=== PATIENT | male | born 1975 | race Caucasian/White ===

== ENCOUNTER → 2017-06-15 | Outpatient (CLI) | payer OTHER ==
--- NOTE | 2017-06-15 11:04 | REP ---
BILIARY SCAN WITH GALLBLADDER EJECTION FRACTION: 06/15/2017. CLINICAL HISTORY: Upper abdominal pain, weight gain, nausea, diarrhea, postprandial symptoms including reflux, heartburn, bloating and gas. Some constipation. TECHNIQUE: The patient received 6.6 mCi technetium 99m mebrofenin via an IV with sequential 5-minute images anteriorly over the right upper quadrant for 1 hour. Technologist notes indicate the patient had to walk for 30 minutes before activity was seen in bowel and the ejection fraction could then be performed. The patient had 8 ounces of Ensure Enlive beginning 95 minutes post tracer administration. A subsequent 60 minutes of dynamic scanning at 2 minute intervals. Region of interest drawn around the gallbladder fossa for this ejection fraction. FINDINGS: Tracer distribution of the liver was homogeneous throughout. Activity is first seen in the gallbladder fossa at 10 minutes. It is not seen in the duodenum by 60 minutes, but there has been excellent washout of activity from the liver and progressive filling of activity in the gallbladder fossa. Common duct activity was seen. No focal defects are noted in hepatic parenchyma. After the patient walked for 30 minutes and the Ensure was ingested, activity was seen in the duodenum and jejunum. There is progression of activity in the small bowel over the course of 1 hour observation. Activity overlying the gallbladder fossa is also visibly diminished over time with the region of interest drawn over the gallbladder and ejection fraction calculated by semi-automated method. That value was 71% ejection fraction for 60 minutes. With this technique, normal ejection fraction is greater than 35%. IMPRESSION: 1. Prompt homogeneous tracer distribution throughout the liver with good washout of activity from the liver, progressive and prompt filling of gallbladder with radiotracer. Activity into the duodenum and jejunum was observed after 30 minutes of walking and there was good progression and peristalsis of activity over the observation for ejection fraction. 2. Ejection fraction for 1 hour is 71%. The normal range greater than 35% using this technique. Signed by Jero Benton MD 06/15/2017 11:42 A
== END ==
LOC: M RAD 07:32
PROVIDERS: ATTEND Surgery
DX: R10.10 Upper abdominal pain, unspecified (principal)
CPT/HCPCS: 78227; A9537; J2805

== ENCOUNTER → 2020-11-13 | Outpatient (CLI) | payer OTHER ==
[~2020-11-13] MED LIST: ESOM0.1C PO; FERR325T3 PO; FIBE625T PO; ZOLM5TAB20 PO
== END ==
LOC: M LABSMTC 10:04
PROVIDERS: ATTEND Anesthesiology
DX: Z01.812 Encounter for preprocedural laboratory examination (principal); Z20.822 Contact with and (suspected) exposure to COVID-19

== ENCOUNTER 2020-11-18 07:31 | Day surgery (SDC) | payer OTHER ==
[~2020-11-18] VITALS: Ht 177.8 cm; Wt 69.9 kg
[~2020-11-18 07:31] MED LIST changes: +NS 1,000 ML IV ONE
[2020-11-18] MEDS ORDERED: LIDOCAINE 2% 100MG/5ML SDV (FOR ANES.) As Ordered ONE (07:45)
[2020-11-18] MEDS ORDERED: propofoL 200 MG/20 ML VIAL As Ordered ONE (07:45)
[2020-11-18] MEDS ORDERED: fentaNYL 100 MCG/2 ML INJECTION (J3010) As Ordered ONE (07:45)
--- OUTSIDE RECORDS SUMMARY | 2020-11-18 08:37 | CCD ---
Author Author [facility] Organization [facility] Address Unknown Phone Unavailable Care Team Providers Care Breeding Technician Name Role Phone Hilario Gomez Unavailable PROBLEMS Type Condition ICD9-CM Code [id number] Code Onset Dates Condition S tatus SNOMED Code Notes Problem Hematuria R31.9 Active 81339990 ALLERGIES No Known Allergies ENCOUNTERS from 1975 to 2020-10-13 Encounter Location Date Provider Diagnosis [facility] [address] [place] [address] Oct Hilario Gomez Hematuria R31.9 IMMUNIZATIONS No Information SOCIAL HISTORY Tobacco Use: Social History Observation Description Date Details (start date - stop date) Never Smoker Sex Assigned At : Social History Observation Description Sex Assigned At Unknown Sexual Hx: Question Answer Notes Had sex in the last 12 months (vaginal, oral, or anal)? Yes Have you ever had an STD? No Prevention Strategies discussed: Other with Women only Use protection? No Alcohol Screening: Question Answer Notes Did you have a drink containing alcohol in the past year? Ye s Points 5 Interpretation Positive How often did you have six or more drinks on one occas ion in the past year? Monthly (2 points) How many drinks did you have on a typica l day when you were drinking in the past year? 3 or 4 (1 point) How often did you have a drink containing alcohol in t he past year? Two to four times a month (2 points) Tobacco Use: Question Answer Notes Are you a: never smoker REASON FOR REFERRAL No Information VITAL SIGNS No information MEDICATIONS Medication SIG (Take, Route, Frequency, Duration) Notes Start Da te End Date Status Iron 325 (65 Fe) MG 1 tablet Orally Once a day for 30 day(s) Active Capsaicin 0.025 % 1 application as needed Externally Three times a da y Active Gabapentin 100 MG 1 capsule Orally Once a day for 30 day(s) Not-Taking Hydrocortisone 2.5 % 1 application Externally Once a day Active Cetaphil Moisturizing Act robbin Ciprofloxacin HCl 500 MG 1 tablet 1 hour prior to you r cystoscopy Orally Once for 1 days Sep, Active Esomeprazole Magnesium 20 MG 1 capsule Orally Once a day for 30 day(s ) Active Zolmitriptan 5 MG 1 tablet as needed one time Orally Once a day for 1 day(s) Active Calcium Polycarbophil 625 MG 2 tablets as needed Orally Four times a day Active Lansoprazole 30 MG 1 capsule Orally Once a day for 30 day(s) Not-Taking PROCEDURES No Information RESULTS No Results REASON FOR VISIT cipro script MEDICAL (GENERAL) HISTORY Type Description Date Medical History anemia Medical History chronic constipation Medical History FH Medical History GERD Medical History Migraines Medical History obstructive sleep apnea Medical History intervertebral disc disorder, lumdosacra l Medical History microscopic hematuria Medical History knee and shoulder pain Surgical History lower back surgery 2008 Surgical History dosial colum stimular 2018 Surgical History left hip surgery 2018 Goals Section No Information Health Concerns No Information MEDICAL EQUIPMENT No Information MENTAL STATUS No Information FUNCTIONAL STATUS No Information ASSESSMENTS Encounter Date Diagnosis Assessment Notes Treatment Notes Treatm ent Clinical Notes Oct, Hematuria (ICD-10 - R31.9) PLAN OF TREATMENT Medication Medication Name Sig Start Date Stop Date Ciprofloxacin HCl 500 MG 1 tablet 1 hour prior to you r cystoscopy Orally Once for 1 days Sep, Next Appt Details Provider Name:Bertrand Rizo, 2020-10-14 02:00:00 PM, [address], [place], [address], Insurance Providers Payer Name Payer Address Payer Phone Insured Name Patient Relati onship to Insured Coverage Start Date Coverage End Date 'S ADMINSTRATION ([place]) NON VA CARE [address] [address] [facility] [id number] [address] [facility] [employer] [id number] [place] [address] [address] LUGO
--- OUTSIDE RECORDS SUMMARY | 2020-11-18 08:37 | CCD ---
Author Author [facility] Organization [facility] Address Unknown Phone Unavailable Care Team Providers Care Mingler Operator Name Role Phone RizoBertrand Unavailable PROBLEMS Type Condition ICD9-CM Code [id number] Code Onset Dates Condition S tatus SNOMED Code Notes Problem Hematuria R31.9 Active [id number] ALLERGIES No Known Allergies ENCOUNTERS from 1975 to 2020-10-17 Encounter Location Date Provider Diagnosis [facility] [address] [place] [address] Oct Bertrand Rizo Hematuria R31.9 and BPH without obstruct ion/lower urinary tract symptoms N40.0 IMMUNIZATIONS No Information SOCIAL HISTORY Tobacco Use: [...] REASON FOR REFERRAL No Information VITAL SIGNS Weight 155 lbs Oct, Height 71 in Oct, BMI 21.62 kg/m2 Oct, Heart Rate 65 /min Oct, Respiratory Rate 18 /min Oct, Temperature 97.3 degrees Fahrenheit Oct, Oximetry 96 Oct, MEDICATIONS Medication SIG (Take, Route, Frequency, Duration) Notes Start Da te End Date Status Iron 325 (65 Fe) MG 1 tablet Orally Once a day for 30 day(s) Active Calcium Polycarbophil 625 MG 2 tablets as needed Orally Four times a day Active Zolmitriptan 5 MG 1 tablet as needed one time Orally Once a day for 1 day(s) Active Esomeprazole Magnesium 20 MG 1 capsule Orally Once a day for 30 day(s ) Active Hydrocortisone 2.5 % 1 application Externally Once a day Active Lansoprazole 30 MG 1 capsule Orally Once a day for 30 day(s) Active Capsaicin 0.025 % 1 application as needed Externally Three times a da y Active Ciprofloxacin HCl 500 MG 1 tablet 1 hour prior to you r cystoscopy Orally Once for 1 days Sep, Active Cetaphil Moisturizing Act robbin Gabapentin 100 MG 1 capsule Orally Once a day for 30 day(s) Active PROCEDURES from 1975 to 2020-10-17 Procedure Date Ordered Result Body Site Medication: Lidocaine HCl 2% Jelly 5mL Intravesically 2020-10-14 N/A RESULTS No Results REASON FOR VISIT microscopic hematuria MEDICAL (GENERAL) HISTORY Type Description Date Medical History anemia Medical History chronic constipation Medical History FH Medical History GERD Medical History Migraines Medical History obstructive sleep apnea Medical History intervertebral disc disorder, lumdosacra l Medical History microscopic hematuria Medical History knee and shoulder pain Surgical History lower back surgery 2008 Surgical History dosial [facility] 2017 Surgical History left hip surgery 2018 Surgical History cystoscopy 10/14/2020 Goals Section No Information Health Concerns No Information MEDICAL EQUIPMENT No Information MENTAL STATUS No Information FUNCTIONAL STATUS No Information ASSESSMENTS Encounter Date Diagnosis Assessment Notes Treatment Notes Treatm ent Clinical Notes Oct, Hematuria (ICD-10 - R31.9) No abnormalities are noted on cystoscopy today. He will return in 1 year with cystoscopy and CT urogram with PSA and DEMETRIO for microscoic hematuria Oct, BPH without obstruction/lowe r urinary tract symptoms (ICD-10 - N40.0) PLAN OF TREATMENT Treatment Notes Assessment Notes Clinical Notes Hematuria No abnormalities are noted on cystoscopy today.He will return in 1 year with cystoscopy and CT urogram with PSA and DEMETRIO for microscoic hematuria Future Test Test Name Order Date PSA SCREENING [id number] CT Scan : Urogram (Abdomen/Pelvis) [id number] Next Appt Details 1 Year Reason:CT scan and cystoscopy for microscopic hematuria. Also for management of BPH. Follow Up:1 YearCT scan and cystoscopy for microscopic hematuria. Also for management of BPH. Insurance Providers Payer Name Payer Address Payer Phone Insured Name Patient Relati onship to Insured Coverage Start Date Coverage End Date [facility] [id number] [facility] [id number] [address] 'S ADMINSTRATION ([place]) NON VA CARE [address] [address] [facility] [id number] ARM[address] LUGO
--- OUTSIDE RECORDS SUMMARY | 2020-11-18 08:38 | CCD ---
Author Author [facility] Organization [facility] Address Unknown Phone Unavailable Care Team Providers Care Gun Barrel Finisher Name Role Phone Hilario Gomez Unavailable PROBLEMS Type Condition ICD9-CM Code [id number] Code Onset Dates Condition S tatus SNOMED Code Notes Problem Hematuria R31.9 Active [id number] ALLERGIES No Known Allergies ENCOUNTERS from 1975 to 2020-10-06 Encounter Location Date Provider Diagnosis [facility] [address] [place] [address] Sep Hilario Gomez Hematuria R31.9 IMMUNIZATIONS No Information [...] FOR REFERRAL No Information VITAL SIGNS Weight 147 lbs Sep, Height 71 in Sep, BMI 20.50 kg/m2 Sep, Heart Rate 59 /min Sep, Respiratory Rate 16 /min Sep, Temperature 97.1 degrees Fahrenheit Sep, Oximetry 98% Sep, Blood pressure systolic 108 mm Hg Sep, Blood pressure diastolic 60 mm Hg Sep, MEDICATIONS Medication SIG (Take, Route, Frequency, Duration) Notes Start Da te End Date Status Iron 325 (65 Fe) MG 1 tablet Orally Once a day for 30 day(s) Active Capsaicin 0.025 % 1 application as needed Externally Three times a da y Active Gabapentin 100 MG 1 capsule Orally Once a day for 30 day(s) Not-Taking Ciprofloxacin HCl 500 MG 1 tablet 1 hour prior to you r cystoscopy Orally Once for 1 days Sep, Active Cetaphil Moisturizing Act robbin Lansoprazole 30 MG 1 capsule Orally Once a day for 30 day(s) Not-Taking Esomeprazole Magnesium 20 MG 1 capsule Orally Once a day for 30 day(s ) Active Zolmitriptan 5 MG 1 tablet as needed one time Orally Once a day for 1 day(s) Active Calcium Polycarbophil 625 MG 2 tablets as needed Orally Four times a day Active Hydrocortisone 2.5 % 1 application Externally Once a day Active PROCEDURES No Information RESULTS No Results REASON FOR VISIT hematuria MEDICAL (GENERAL) HISTORY Type Description Date [...] Notes Treatment Notes Treatm ent Clinical Notes Sep, Hematuria (ICD-10 - R31.9) Pt has had a urine cytology and CT, he will need a cystoscopy to complete workup. Procedure and consent reviewed and signed, [facility] PLAN OF TREATMENT Medication Medication Name Sig Start Date Stop Date Ciprofloxacin HCl 500 MG 1 tablet 1 hour prior to you r cystoscopy Orally Once for 1 days Sep, Treatment Notes Assessment Notes Clinical Notes Hematuria Pt has had a urine c ytology and CT, he will need a cystoscopy to complete workup. Procedure and consent reviewed and signed, abx faxed to [place]. Next Appt Details cystoscopy Reason:hematuria Provider Name:Bertrand Rizo, 2020-10-14 02:00:00 PM, [address], [place], [address], Follow Up:cystoscopyhematuria Insurance Providers Payer Name Payer Address Payer Phone Insured Name Patient Relati onship to Insured Coverage Start Date Coverage End Date 'S ADMINSTRATION (VA) NON VA CARE [address] [address] [facility] [id number] [address] [facility] [address] [facility] [id number] [address]
--- OUTSIDE RECORDS SUMMARY | 2020-11-18 08:39 | CCD ---
Author Author [facility] Organization [facility] Address Unknown Phone Unavailable Care Team Providers Care Door Liner Name Role Phone Chandni Gonzalez MD (Jack) Unavailable Unavailable Chandni Gonzalez MD (Jack) Unavailable Unavailable Chandin Gonzalez MD (Jack) Unavailable Unavailable Chandni Gonzalez MD (Jack) Unavailable Unavailable Chandni Gonzalez MD (Jack) Unavailable Unavailable Chandni Gonzalez MD (Jack) Unavailable Unavailable Chandni Gonzalez MD (Jack) Unavailable Unavailable Chandni Gonzalez MD (Jack) Unavailable Unavailable Chandni Gonzalez MD (Jack) Unavailable Unavailable Chandni Gonzalez MD (Jack) Unavailable Unavailable Chandni Gonzalez MD (Jack) Unavailable Unavailable Chandni Gonzalez MD (Jack) Unavailable Unavailable Chandni Gonzalez MD (Jack) Unavailable Unavailable Chandni Gonzalez MD (Jack) Unavailable Unavailable Chandni Gonzalez MD (Jack) Unavailable Unavailable Chandni Gonzalez MD (Jack) Unavailable Unavailable Chandni Gonzalez MD (Jack) Unavailable Unavailable Chandni Gonzalez MD (Jack) Unavailable Unavailable Chandni Gonzalez MD (Jack) Unavailable Unavailable Tin, Chandni Katey (Hector) MD Unavailable Unavailable Tin, Chandni Katey (Hector) MD Unavailable Unavailable Tin, Chandni Katey (Hector) MD Unavailable Unavailable Tin, Chandni Katey (Hector) MD Unavailable Unavailable Tin, Chandni Katey (Hector) MD Unavailable Unavailable Tin, Chandni Katey (Hector) MD Unavailable Unavailable Tin, Chandni Katey (Hector) MD Unavailable Unavailable Tin, Chandni Katey (Hector) MD Unavailable Unavailable Tin, Chandni Katey (Hector) MD Unavailable Unavailable Tin, Chandni Katey (Hector) MD Unavailable Unavailable Tin, Chandni Katey (Hector) MD Unavailable Unavailable Tin, Chandni Katey (Hector) MD Unavailable Unavailable Tin, Chandni Katey (Hector) MD Unavailable Unavailable Tin, Chandni Katey (Hector) MD Unavailable Unavailable Tin, Chandni Katey (Hector) MD Unavailable Unavailable Tin, Chandni Katey (Hector) MD Unavailable Unavailable Tin, Chandni Katey (Hector) MD Unavailable Unavailable Tin, Chandni Katey (Hector) MD Unavailable Unavailable Tin, Chandni Katey (Hector) MD Unavailable Unavailable Tin, Chandni Katey (Hector) MD Unavailable Unavailable Tin, Chandni Katey (Hector) MD Unavailable Unavailable Tin, Chandni Katey (Hector) MD Unavailable Unavailable Tin, Chandni Katey (Hector) MD Unavailable Unavailable Tin, Chandni Katey (Hector) MD Unavailable Unavailable Tin, Chandni Katey (Hector) MD Unavailable Unavailable Tin, Chandni Katey (Hector) MD Unavailable Unavailable Tin, Chandni Katey (Hector) MD Unavailable Unavailable Tin, Chandni Katey (Hector) MD Unavailable Unavailable Tin, Chandni Katey (Hector) MD Unavailable Unavailable Tin, Chandni Katey (Hector) MD Unavailable Unavailable Tin, Chandni Katey (Hector) MD Unavailable Unavailable Tin, Chandni Katey (Hector) MD Unavailable Unavailable Tin, Chandni Katey (Hector) MD Unavailable Unavailable Tin, Chandni Katey (Hector) MD Unavailable Unavailable Tin, Chandni Katey (Hector) MD Unavailable Unavailable Re-disclosure Warning The records that you are about to access may contain information from federally-assisted alcohol or drug abuse programs. If such information is present, then the following federally mandated warning applies: This information has been disclosed to you from records protected by federal confidentiality rules (42 CFR part 2). The federal rules prohibit you from making any further disclosure of this information unless further disclosure is expressly permitted by the written consent of the person to whom it pertains or as otherwise permitted by 42 CFR part 2. A general authorization for the release of medical or other information is NOT sufficient for this purpose. The Federal rules restrict any use of the information to criminally investigate or prosecute any alcohol or drug abuse patient.The records that you are about to access may contain highly sensitive health information, the redisclosure of which is protected by Article 27-F of the [facility] Public Health law. If you continue you may have access to information: Regarding HIV / AIDS; Provided by facilities licensed or operated by the [facility] Office of Mental Health; or Provided by the [facility] Office for People With Developmental Disabilities. If such information is present, then the following [facility] mandated warning applies: This information has been disclosed to you from confidential records which are protected by state law. State law prohibits you from making any further disclosure of this information without the specific written consent of the person to whom it pertains, or as otherwise permitted by law. Any unauthorized further disclosure in violation of state law may result in a fine or fci sentence or both. A general authorization for the release of medical or other information is NOT sufficient authorization for further disc losure. Family History Family Member Name Family Member Gender Family Member Status Date o f Status Description Data Source(s) Unknown Male Problem MEDENT ([facility]) Encounters Encounter Providers Location Date Indications Data Source(s ) ([facility]) Urology [address] [place] [address] 10/14/2020 12:00:00 AM EST eCW1 ([facility]) Unknown [address] [facility] [address] 10/10/2020 12:00:00 AM EST eCW1 ([facility]) Outpatient [address] [facility] [address] 09/23/2020 12:00:00 AM EST eCW1 ([facility]) Medications Medication Brand Name Start Date Product Form Dose Route Admi nistrative Instructions Pharmacy Instructions Status Indications Reaction Description Data Source(s) Ciprofloxacin 500 MG Oral Tablet Ciprofloxacin HCl 500 MG Ciprofloxacin HCl 500 MG 09/23/2020 12:00:00 AM EST active Ciprofloxacin HCl 500 MG eCW1 ([facility]) Ciprofloxacin 500 MG Oral Tablet Ciprofloxacin HCl 500 MG Ciprofloxacin HCl 500 MG 09/23/2020 12:00:00 AM EST active Ciprofloxacin HCl 500 MG eCW1 ([facility]) Ciprofloxacin 500 MG Oral Tablet Ciprofloxacin HCl 500 MG Ciprofloxacin HCl 500 MG 09/23/2020 12:00:00 AM EST active Ciprofloxacin HCl 500 MG eCW1 ([facility]) Insurance Providers Payer name Policy type / Coverage type Policy ID Covered alliance party ID Covered alliance party's relationship to mesa Policy Mesa Plan Information 'S ADMINISTRATION [id number] SP [id number] [place] [employer]NA [id number] SP [id number] OPTUM [place] CCN [id number] SP [id number] ACTIVE DUTY [id number] SP [id number] Kym [id number] [place] [employer] - O/P [id number] 18 [id number] [place] [employer] Commercial [id number] [place] [id number] [place] [id number] 18 [id number] Hum[employer] ( [place]) [id number] 0 [id number] [place] Claims F [id number] SELF [id number] HEA [id number] S [id number] PI PI [facility] O [id number] S [id number] HUMANA [place] O [id number] S [id number] [place] [employer] Commercial [id number] Self [id number] [place] [employer] Commercial [id number] Self [id number] [place] [employer] - PHYSICIAN [id number] 18 [id number] EAST - CLINIC [id number] 18 [id number] [place] [employer] Commercial [id number] Self [id number] North Commercial [id number] Self [id number] [place] [id number] 18 [id number] [id number] 18 [id number] [place] [id number] 18 [id number] [place] F [id number] SELF [id number] [place] Commercial [id number] Self [id number] [place] F [id number] SELF [id number] [place] Commercial [id number] Self [id number] N REGIONAL CLAIMS COLE -O/P [id number] 18 [id number] U [id number] Self [id number] [facility] Commercial [id number] Self [id number] [facility] Commercial [id number] Self [id number] [facility] Commercial [id number] Self [id number] ACTIVE DUTY [id number] SP [id number] [facility] Commercial [id number] Self [id number] [employer] [place] O [id number] S [id number] Patient is Insured [id number] Problems, Conditions, and Diagnoses Code Display Name Description Problem Type Effective Dates Data Source(s) R31.9 Hematuria Hematuria Problem 09/23/2020 12:00:00 AM ES T eCW1 ([facility]) K21.9 Gastro-esophageal reflux disease without esophagitis Gastro-esophageal reflux disease without Diagnosis 10/30/2020 10:23:[address] [facility] Surgeries/Procedures Procedure Description Date Indications Data Source(s) Medication: Lidocaine HCl 2% Jelly 5mL Intravesically 10/14/2020 12:00:00 AM EST eCW1 ([facility]) Results ID Date Data Source [id number] 11/13/2020 10:00:00 AM EST [facility] Name Value Range Interpretation Code Description Data Katy rce(s) Supporting Document(s) SARS coronavirus [address] [facility] [place] This lab was ordered by [facility] and reported by [facility]. Procedure Social History Code Duration Value Status Description Data Source(s ) Smoking 10/14/2020 12:00:00 AM EST Never Smoker completed Never S moker eCW1 ([facility]) Smoking 09/23/2020 12:00:00 AM EST Never Smoker completed Never S moker eCW1 ([facility]) Smoking 09/23/2020 12:00:00 AM EST Never Smoker completed Never S moker eCW1 ([facility]) Vital Signs ID Date Data Source UNK Name Value Range Interpretation Code Description Data Source(s) Body temperature 97.3 [degF] 97.3 [degF] eCW1 ( [facility]) Respiratory rate 18 /min 18 /min eCW1 ([facility]) Heart rate 65 /min 65 /min eCW1 ([facility]) Body mass index (BMI) [Ratio] 21.62 kg/m2 21.62 kg/m2 eCW1 ([facility]) Body height 71 [in_i] 71 [in_i] eCW1 ([facility]) Body weight 155 [lb_av] 155 [lb_av] eCW1 ([facility]) Diastolic blood pressure 60 mm[Hg] 60 mm[Hg] eCW1 ([facility]) Systolic blood pressure 108 mm[Hg] 108 mm[Hg] e CW1 ([facility]) Body temperature 97.1 [degF] 97.1 [degF] eCW1 ( [facility]) Respiratory rate 16 /min 16 /min eCW1 ([facility]) Heart rate 59 /min 59 /min eCW1 ([facility]) Body mass index (BMI) [Ratio] 20.50 kg/m2 20.50 kg/m2 eCW1 ([facility]) Body height 71 [in_i] 71 [in_i] eCW1 ([facility]) Body weight 147 [lb_av] 147 [lb_av] eCW1 ([facility]) Patient Treatment Plan of Care Planned Activity Planned Date Details Description Data Source (s) Ciprofloxacin 500 MG Oral Tablet 09/23/2020 12:00:00 AM EST eCW1 ([facility]) Ciprofloxacin 500 MG Oral Tablet 09/23/2020 12:00:00 AM EST eCW1 ([facility]) Outpatient<td>05/12/2018</td><td ID="enc [id number]">Hospital Encounter</td><td ID="[id number]">Specialty Specialties</td><td><paragraph styleCode="Bold">Chandni Gonzalez MD</paragraph><paragraph>[address]</paragraph><paragraph>[address]</paragraph><paragraph>[place] [address]</paragraph><paragraph>[phone]</paragraph><paragraph> </paragraph></td><td></td> 05/09/2018 12:13:09 PM EDT 05/12 Hospital Encounter Specialty Specialties Chandni Gonzalez MD [address] [place] [address] [facility]
--- NOTE | 2020-11-18 08:53 | ROOR ---
Patient Name: Jv Goodson Procedure Date: 11/18/2020 8:36 AM Date of : 1975 Age: 45 Room: [facility] Gender: Male Note Status: Finalized Procedure: Upper Endoscopy + Biopsies Indications: Unexplained iron deficiency anemia Providers: Fco Baron MD Referring MD: [facility], Admin. Requesting Provider: Medicines: Monitored Anesthesia Care Complications: No immediate complications. Procedure: Pre-Anesthesia Assessment: - The heart rate, respiratory rate, oxygen saturations, blood pressure, adequacy of pulmonary ventilation, and response to care were monitored throughout the procedure. The Endoscope was introduced through the mouth, and advanced to the second part of duodenum. The upper GI endoscopy was accomplished without difficulty. The patient tolerated the procedure well. Findings: The Z-line was regular and was found 45 cm from the incisors. No other significant abnormalities were identified in a careful examination of the stomach. Biopsies were taken with a cold forceps in the gastric antrum for Helicobacter pylori testing. The exam of the duodenum was otherwise normal. Biopsies for histology were taken with a cold forceps in the first portion of the duodenum for evaluation of celiac disease. The exam was otherwise without abnormality. Impression: - Z-line regular, 45 cm from the incisors. - The examination was otherwise normal. - Biopsies were taken with a cold forceps for Helicobacter pylori testing. - Biopsies were taken with a cold forceps for evaluation of celiac disease. - The examination was otherwise normal. Recommendation: - Patient has a contact number available for emergencies. The signs and symptoms of potential delayed complications were discussed with the patient. Return to normal activities tomorrow. Written discharge instructions were provided to the patient. - High fiber diet. - Discharge patient to home. - Continue present medications. - Await pathology results. - Telephone GI clinic for pathology results in 1 week. - Return to referring physician. - The findings and recommendations were discussed with the patient. Procedure Code(s): --- Professional --- 18674, Esophagogastroduodenoscopy, flexible, transoral; with biopsy, single or multiple Diagnosis Code(s): --- Professional --- D50.9, Iron deficiency anemia, unspecified CPT copyright 2019 [employer]. All rights reserved. The codes documented in this report are preliminary and upon director of community life review may be revised to meet current compliance requirements. Fco Baron MD Fco Baron MD 11/18/2020 8:53:11 AM Electronically signed by Fco Baron MD Number of Addenda: 0 Note Initiated On: 11/18/2020 8:36 AM Estimated Blood Loss: Estimated blood loss: none.
[2020-11-18] MEDS ORDERED: ePHEDrine SULFATE 25 MG/5 ML(5MG/ML) SYRINGE As Ordered ONE (09:08)
--- NOTE | 2020-11-18 09:16 | ROOR ---
Patient Name: Jv Goodson Procedure Date: 11/18/2020 8:36 AM Date of : 1975 Age: 45 Room: [facility] Gender: Male Note Status: Finalized Procedure: Total Colonoscopy + Hot Snare Polypectomy + Hemoclips Indications: High risk colon cancer surveillance: Personal history of colonic polyps, Incidental - Unexplained iron deficiency anemia Providers: Fco Baron MD Referring MD: [facility], [facility]. Requesting Provider: Medicines: Monitored Anesthesia Care Complications: No immediate complications. Procedure: Pre-Anesthesia Assessment: - The heart rate, respiratory rate, oxygen saturations, blood pressure, adequacy of pulmonary ventilation, and response to care were monitored throughout the procedure. The Colonoscope was introduced through the anus and advanced to the cecum, identified by appendiceal orifice and ileocecal valve. The colonoscopy was performed without difficulty. The patient tolerated the procedure well. The quality of the bowel preparation was excellent. Findings: The perianal and digital rectal examinations were normal. A large polyp was found in the rectum. The polyp was semi-pedunculated. The polyp was removed with a hot snare. Resection and retrieval were complete. To prevent bleeding after the polypectomy, three hemostatic clips were successfully placed (MR conditional). There was no bleeding at the end of the procedure. The exam was otherwise without abnormality on direct and retroflexion views. Impression: - One large polyp in the rectum, removed with a hot snare. Resected and retrieved. Clips (MR conditional) were placed. - The examination was otherwise normal on direct and retroflexion views. - The exam was otherwise normal to the cecum. Recommendation: - Patient has a contact number available for emergencies. The signs and symptoms of potential delayed complications were discussed with the patient. Return to normal activities tomorrow. Written discharge instructions were provided to the patient. - Resume previous diet. - Discharge patient to home. - Continue present medications. - Await pathology results. - Telephone GI clinic for pathology results in 1 week. - Repeat colonoscopy in 3 years for surveillance based on pathology results. - Return to referring physician. - The findings and recommendations were discussed with the patient. Procedure Code(s): --- Professional --- 45006, Colonoscopy, flexible; with removal of tumor(s), polyp(s), or other lesion(s) by snare technique Diagnosis Code(s): --- Professional --- Z86.010, Personal history of colonic polyps K62.1, Rectal polyp CPT copyright 2019 [employer]. All rights reserved. The codes documented in this report are preliminary and upon senior power plant operator review may be revised to meet current compliance requirements. Fco Baron MD Fco Baron MD 11/18/2020 9:16:11 AM Electronically signed by Fco Baron MD Number of Addenda: 0 Note Initiated On: 11/18/2020 8:36 AM Estimated Blood Loss: Estimated blood loss: none.
[2020-11-18 09:40] VITALS: BP 110/86
== END 2020-11-18 09:45 | disposition home or self-care (01) ==
LOC: M OPP 07:31
PROVIDERS: ATTEND Internal Medicine Gastroenterology
DX: Z12.11 Encounter for screening for malignant neoplasm of colon (principal); Z86.010 Personal history of colon polyps; D50.9 Iron deficiency anemia, unspecified; D12.8 Benign neoplasm of rectum; D13.1 Benign neoplasm of stomach; D13.39 Benign neoplasm of other parts of small intestine; R12 Heartburn; G47.30 Sleep apnea, unspecified; Z96.89 Presence of other specified functional implants; Z79.899 Other long term (current) drug therapy
CPT/HCPCS: 43239; 45385; 88305; J3010

== ENCOUNTER → 2021-11-11 | Outpatient (REF) | payer OTHER ==
[~2021-11-11] MED LIST changes: -NS 1,000 ML IV ONE
[2021-11-11 13:41] LABS: APPEARANCE, URINE CLEAR (CLEAR); BACTERIA, URINE AUTO NEGATIVE (NEGATIVE); BILIRUBIN, URINE AUTO NEGATIVE (NEGATIVE); BLOOD, URINE BLOOD NEGATIVE (NEGATIVE); COLOR, URINE YELLOW (YELLOW); GLUCOSE, URINE (UA) AUTO NEGATIVE (NEGATIVE); KETONE, URINE AUTO NEGATIVE (NEGATIVE); LEUKOCYTE ESTERASE, URINE AUTO NEGATIVE (NEGATIVE); NITRITE, URINE AUTO NEGATIVE (NEGATIVE); PROTEIN, URINE AUTO NEGATIVE (NEGATIVE); RBC, URINE AUTO 0 /HPF (0-3); SPECIFIC GRAVITY URINE AUTO 1.024 (1.002-1.035); SQUAMOUS EPITHELIAL CELL UR AU 0 /HPF (0-6); UROBILINOGEN, URINE AUTO 0.2 mg/dL (0.0-2.0); WBC, URINE AUTO 0 /HPF (0-3)
== END ==
LOC: M SMT 13:16
PROVIDERS: ATTEND Nurse Practitioner Women's Health
DX: R31.9 Hematuria, unspecified (principal)
CPT/HCPCS: 81001; 87086; 88108; G0463

== ENCOUNTER 2024-04-23 08:09 | Day surgery (SDC) | payer OTHER ==
[~2024-04-23] VITALS: Ht 180.3 cm; Wt 67.0 kg
[~2024-04-23 08:09] MED LIST changes: -ESOM0.1C PO; +ESOM20CA2 PO; +EXCETAB32 PO; +HYDR25OIN TOP; +MM S100C PO; +NS 1,000 ML IV ONE; +propofoL 200 MG/20 ML VIAL As Ordered ONE
[2024-04-23] MEDS ORDERED: LIDOCAINE 2% 100MG/5ML SDV (FOR ANES.) As Ordered ONE (09:03)
[2024-04-23] MEDS ORDERED: fentaNYL 100 MCG/2 ML INJECTION As Ordered ONE (09:03)
[2024-04-23 09:47] VITALS: TEMP 97.1
[2024-04-23 10:17] VITALS: BP 103/59; O2SAT 100
== END 2024-04-23 10:34 | disposition home or self-care (01) ==
LOC: M OPP 08:09
PROVIDERS: ATTEND Internal Medicine Gastroenterology
DX: Z12.11 Encounter for screening for malignant neoplasm of colon (principal); Z86.010 Personal history of colon polyps; K64.0 First degree hemorrhoids; Z98.890 Other specified postprocedural states; K22.89 Other specified disease of esophagus; R12 Heartburn; G47.30 Sleep apnea, unspecified; Z99.89 Dependence on other enabling machines and devices; Z79.1 Long term (current) use of non-steroidal anti-inflammatories (NSAID); Z79.52 Long term (current) use of systemic steroids; Z79.83 Long term (current) use of bisphosphonates
CPT/HCPCS: 43239; 45378; 88305; J3010